=== PATIENT | male | born 1985 | race American Indian/Alaskan Native ===

== ENCOUNTER 2021-10-11 03:57 | Emergency (ER) | payer SELFPAY ==
--- NOTE | 2021-10-11 04:31 | EDM.PDOC ---
ED HPI GENERAL MEDICAL PROBLEM - General Chief Complaint: Respiratory Problem Stated Complaint: AMBULANCE Time Seen by Provider: 10/11/21 04:23 Source of Information: Reports: Patient, EMS, RN History Limitations: Reports: No Limitations - History of Present Illness INITIAL COMMENTS - FREE TEXT/NARRATIVE: ED with c/o SOB onset tonight, hx sore throat, No cough, admits panic attack after being SOB, some better now. EMS reported snorting meth tonight, patient reports last on Friday. Reports not eaten or slept since Friday. ED ROS GENERAL - Review of Systems Review Of Systems: Comprehensive ROS is negative, except as noted in HPI. ED EXAM, GENERAL - Physical Exam Exam: See Below Exam Limited By: No Limitations General Appearance: Alert, Anxious, Mild Distress Eye Exam: Bilateral Eye: EOMI, PERRL Ears: Normal External Exam, Hearing Grossly Normal, Normal TMs Nose: Normal Inspection Throat/Mouth: Normal Inspection Head: Atraumatic, Normocephalic Neck: Normal Inspection Respiratory/Chest: No Respiratory Distress, Lungs Clear, Normal Breath Sounds Cardiovascular: Normal Peripheral Pulses, Regular Rate, Rhythm, Tachycardia GI/Abdominal: Normal Bowel Sounds, Soft Extremities: Normal Range of Motion Neurological: Alert, Oriented, Normal Cognition, Other (cooperative) Psychiatric: Anxious, Other (paranoid) Skin Exam: Warm, Dry, Intact, Normal Color #1 Interpretation EKG Date: 10/11/21 Time: 04:34 Rhythm: Other (tachycardia) Rate (Beats/Min): 106 P-Wave: Present QRS: Normal Comparison: NA - No Prior EKG Course - Vital Signs Last Recorded V/S: Last Vital Signs Temp 97 F 10/11/21 04:15 Pulse 116 H 10/11/21 04:15 Resp 16 10/11/21 04:15 BP 116/92 H 10/11/21 04:15 Pulse Ox 98 10/11/21 04:15 - Orders/Labs/Meds Orders: Active Orders 24 hr Category Date Time Status CULTURE BLOOD [BC] Stat Lab 10/11/21 04:40 Received Labs: Laboratory Tests 10/11/21 10/11/21 10/11/21 Range/Units 04:40 04:40 04:40 WBC 14.9 H (5.0-10.0) 10^3/uL RBC 5.02 (4.6-6.2) 10^6/uL Hgb 15.9 (14.0-18.0) g/dL Hct 46.4 (40.0-54.0) % MCV 92.4 (80-100) fL MCH 31.7 (27.0-34.0) pg MCHC 34.3 (33.0-35.0) g/dL Plt Count 337 (150-450) 10^3/uL Neut % (Auto) 86.7 H (42.2-75.2) % Lymph % (Auto) 7.2 L (20.5-50.1) % [place] % (Auto) 5.3 (2-8) % Eos % (Auto) 0.6 L (1.0-3.0) % Baso % (Auto) 0.2 (0.0-1.0) % PT Cancelled INR Cancelled D-Dimer, Quantitative Cancelled Sodium (136-145) mmol/L Potassium (3.5-5.1) mmol/L Chloride (98-107) mmol/L Carbon Dioxide (21-32) mmol/L Anion Gap (7-13) mEq/L BUN (7-18) mg/dL Creatinine (0.70-1.30) mg/dL Est Cr Clr Drug Dosing mL/min Estimated GFR (MDRD) BUN/Creatinine Ratio (No establ ref range) Glucose (70-99) mg/dL Calcium (8.5-10.1) mg/dL Magnesium (1.8-2.4) mg/dL Total Bilirubin (0.2-1.0) mg/dL AST (15-37) U/L ALT (16-63) U/L Alkaline Phosphatase (46-116) U/L Troponin I High Sens (<=76) pg/mL Total Protein (6.4-8.2) g/dL Albumin (3.4-5.0) g/dL Globulin Albumin/Globulin Ratio Amylase (25-115) U/L Lipase (73-393) U/L Ethyl Alcohol (0) mg/dL Influenza Type A RNA Negative (NEGATIVE) Influenza Type B RNA Negative (NEGATIVE) SARS-CoV-2 RNA (HERACLIO) Negative (NEGATIVE) 10/11/21 Range/Units 04:40 WBC (5.0-10.0) 10^3/uL RBC (4.6-6.2) 10^6/uL Hgb (14.0-18.0) g/dL Hct (40.0-54.0) % MCV (80-100) fL MCH (27.0-34.0) pg MCHC (33.0-35.0) g/dL Plt Count (150-450) 10^3/uL Neut % (Auto) (42.2-75.2) % Lymph % (Auto) (20.5-50.1) % [place] % (Auto) (2-8) % Eos % (Auto) (1.0-3.0) % Baso % (Auto) (0.0-1.0) % PT INR D-Dimer, Quantitative Sodium 142 (136-145) mmol/L Potassium 3.7 (3.5-5.1) mmol/L Chloride 103 (98-107) mmol/L Carbon Dioxide 22 (21-32) mmol/L Anion Gap 20.7 H (7-13) mEq/L BUN 15 (7-18) mg/dL Creatinine 1.73 H (0.70-1.30) mg/dL Est Cr Clr Drug Dosing 61.05 mL/min Estimated GFR (MDRD) 45 BUN/Creatinine Ratio 8.7 (No establ ref range) Glucose 153 H (70-99) mg/dL Calcium 9.6 (8.5-10.1) mg/dL Magnesium 3.7 H (1.8-2.4) mg/dL Total Bilirubin 0.5 (0.2-1.0) mg/dL AST 10 L (15-37) U/L ALT 15 L (16-63) U/L Alkaline Phosphatase 103 (46-116) U/L Troponin I High Sens 9 (<=76) pg/mL Total Protein 8.2 (6.4-8.2) g/dL Albumin 4.4 (3.4-5.0) g/dL Globulin 3.8 Albumin/Globulin Ratio 1.2 Amylase 29 (25-115) U/L Lipase 48 L (73-393) U/L Ethyl Alcohol < 3 (0) mg/dL Influenza Type A RNA (NEGATIVE) Influenza Type B RNA (NEGATIVE) SARS-CoV-2 RNA (HERACLIO) (NEGATIVE) Meds: Medications Discontinued Medications Generic Name Dose Route Start Last Admin Trade Name Freq PRN Reason Stop Dose Admin Sodium Chloride 1,000 mls @ 999 mls/hr 10/11/21 04:32 10/11/21 04:47 Normal Saline IV 10/11/21 05:32 999 mls/hr .BOLUS ONE Administration Departure - Departure Time of Disposition: 05:10 Disposition: Against Medical Advice 07 Condition: Good Clinical Impression: Methamphetamine abuse, Paranoia, Anxiety - Discharge Information *PRESCRIPTION DRUG MONITORING PROGRAM REVIEWED*: No *COPY OF PRESCRIPTION DRUG MONITORING REPORT IN PATIENT IVAN: No Referrals: PCP,None [Primary Care Provider] - Forms: ED Department Discharge Sepsis Event Note (ED) - Focused Exam Vital Signs: Vital Signs Temp Pulse Resp BP Pulse Ox 10/11/21 04:15 97 F 116 H 16 116/92 H 98 - My Orders Last 24 Hours: My Active Orders 10/11/21 04:40 CULTURE BLOOD [BC] Stat - Assessment/Plan Last 24 Hours: My Active Orders 10/11/21 04:40 CULTURE BLOOD [BC] Stat
[2021-10-11] MEDS ORDERED: Sodium Chloride 0.9% 1,000 ML IV ONE (04:32)
[2021-10-11 05:27] LABS: CORONAVIRUS COVID-19 NAA NEGATIVE (NEGATIVE)
[2021-10-11 05:50] LABS: ANION GAP 20.7 mEq/L (7-13); CHLORIDE,CL 103 mmol/L (98-107); SODIUM,NA 142 mmol/L (136-145)
== END 2021-10-11 05:10 | disposition left against medical advice (07) ==
LOC: DL.ED 03:57
DX: F22 Delusional disorders (principal); F41.9 Anxiety disorder, unspecified; F15.10 Other stimulant abuse, uncomplicated; Z20.822 Contact with and (suspected) exposure to COVID-19
CPT/HCPCS: 0240U; 36415; 80053; 80307; 82150; 83690; 83735; 84484; 85025; 87040; 93005; 99285-25; J7030

== ENCOUNTER 2023-04-30 14:26 | Emergency (ER) | payer BC, OTHER | END 2023-04-30 14:27 | disposition left against medical advice (07) | LOC: DL.ED 14:26 | DX: Z53.21 Procedure and treatment not carried out due to patient leaving prior to being seen by health care provider (principal) ==

== ENCOUNTER 2025-01-22 20:14 | Emergency (ER) | payer BC, MEDICAID ==
[2025-01-22] MEDS: Take Home: Amoxicillin/Clavulanate K 875-125 MG Tab, 6 Tab Pack PO ONE (21:04)
[2025-01-22] MEDS: Ketorolac 30 MG/ML SDV IM ONE (21:04)
== END 2025-01-22 21:21 | disposition home or self-care (01) ==
LOC: DL.ED 20:14
DX: K02.9 Dental caries, unspecified (principal); K04.7 Periapical abscess without sinus
CPT/HCPCS: 96372; 99283; A9270-GY; J1885